=== PATIENT | male | born 1970 | race Caucasian/White ===

== ENCOUNTER → 2018-08-26 16:47 | Outpatient (CLI) | payer OTHER, SELFPAY ==
--- NOTE | 2018-08-26 16:53 | XR_ITS ---
XR foot LT min 3V Ordering Physician: Juancho Irby Patient Age: 47 years: Male HISTORY: ITS.REASON: LEFT FOOT INJURY WITH PAIN Jumped off a wagon one year ago. Persistent Left foot pain TECHNIQUE: 3 views of the left foot COMPARISON :12/14/2016 left foot FINDINGS . No acute fracture or findings. No periosteal reaction. No stress fracture. . Joint spaces well-maintained. No erosions. Bones well mineralized. Only note that we again see the prominent medial extension of the tarsal navicular/anatomical variant However this be associated with symptoms at the insertion of the posterior tibial tendon if focal tenderness here. Also note patient has a generous plantar arch. Minimal plantar calcaneal spur. & Minimal encephalopathy spurring at insertion of Achilles tendon. These are unchanged from previous study IMPRESSION: Left foot intact. No acute findings. Minor observations as in text.
== END ==
PROVIDERS: PCP Internal Medicine; Visit Provider Internal Medicine
DX: S99.922A Unspecified injury of left foot, initial encounter (principal)
CPT/HCPCS: 73630

== ENCOUNTER → 2019-08-11 15:58 | Outpatient (CLI) | payer OTHER, SELFPAY ==
--- NOTE | 2019-08-11 16:04 | XR_ITS ---
PROCEDURE: XR FOOT WT BEARING RT 3V CLINICAL INDICATION: foot and ankle pain COMPARISON: FTL3 FOOT-LT-3 VIEWS from 12/14/2016 [id number] XR foot LT min 3V from 08/26/2018 FINDINGS: No fracture or dislocation. No lytic or blastic change. There is normal mineralization. The joint spaces are well-preserved. No significant degenerative/arthritic changes. No erosive changes evident. Other findings:Small enthesophyte at the Achilles insertion. There is minimal osteoarthritic change of the talonavicular joint and the anterior tibiotalar IMPRESSION: Minimal degenerative change, no acute finding Dictated by: Aden Moralez MD 08/11/2019 16:26 Electronically signed by Aden Moralez MD in [place] 08/11/2019 16:26
--- NOTE | 2019-08-11 16:04 | XR_ITS ---
PROCEDURE: XR ANKLE WT BEARING LT MIN 3V CLINICAL INDICATION: foot and ankle pain Foot and ankle pain COMPARISON: XR FOOT WT BEARING LT 3V from 08/11/2019 FINDINGS: No fracture, dislocation, lytic change, or blastic change evident. No significant degenerative change. Small calcaneal spurs noted in there is a small enthesophyte at the Achilles insertion IMPRESSION: No acute findings. Dictated by: Aden Moralez MD 08/11/2019 16:25 Electronically signed by Aden Moralez MD in [place] 08/11/2019 16:25
--- NOTE | 2019-08-11 16:04 | XR_ITS ---
PROCEDURE: XR FOOT WT BEARING LT 3V CLINICAL INDICATION: Foot and ankle pain COMPARISON: FTL3 FOOT-LT-3 VIEWS from 12/14/2016 [id number] XR foot LT min 3V from 08/26/2018 FINDINGS: No fracture or dislocation. No lytic or blastic change. There is normal mineralization. The joint spaces are well-preserved. No significant degenerative/arthritic changes. No erosive changes evident. Other findings:None. IMPRESSION: No acute findings. Dictated by: Aden Moralez MD 08/11/2019 16:22 Electronically signed by Aden Moralez MD in [place] 08/11/2019 16:22
--- NOTE | 2019-08-11 16:04 | XR_ITS ---
PROCEDURE: XR ANKLE WT BEARING RT MIN 3V CLINICAL INDICATION: foot and ankle pain COMPARISON: No exams were available for comparison FINDINGS: No fracture or dislocation. No lytic or blastic change. There is some cortical regularity of the posterior distal tibia which could be posttraumatic. IMPRESSION: Mild cortical irregularity of the posterior distal tibia which could be related to chronic posttraumatic changes, no acute finding Dictated by: Aden Moralez MD 08/11/2019 16:23 Electronically signed by Aden Moralez MD in [place] 08/11/2019 16:23
== END ==
PROVIDERS: PCP Internal Medicine; Visit Provider Podiatrist
DX: M25.572 Pain in left ankle and joints of left foot (principal); M25.571 Pain in right ankle and joints of right foot
CPT/HCPCS: 73610; 73630

== ENCOUNTER → 2020-11-29 16:25 | Outpatient (CLI) | payer OTHER, SELFPAY ==
--- NOTE | 2020-11-29 16:29 | XR_ITS ---
PROCEDURE: XR CHEST 2V CLINICAL HISTORY: LT SHOULDER PAIN W/ COUGH, ASTHMA COMPARISON: No exams were available for comparison FINDINGS: Normal heart size. The renate are prominent on both sides and may be related to either prominent pulmonary arteries or adenopathy. Nonemergent chest CT with contrast may provide further evaluation. The lungs are clear without infiltrates, suspicious nodules, or pleural effusions. Thoracic kyphosis with degenerative changes of the thoracic spine. IMPRESSION: Bilateral hilar prominence which could be due to adenopathy or prominent pulmonary arteries. Suggest nonemergent chest CT with contrast for further evaluation Dictated by: Aden Moralez MD 11/29/2020 17:02 Aden Moralez MD in [place] 11/29/2020 17:02
== END ==
PROVIDERS: PCP Internal Medicine; Visit Provider Internal Medicine
DX: R05 Cough (principal); J45.909 Unspecified asthma, uncomplicated; M25.512 Pain in left shoulder
CPT/HCPCS: 71046

== ENCOUNTER → 2021-08-11 17:50 | Outpatient (CLI) | payer OTHER, SELFPAY ==
[2021-08-11 18:56] LABS: Basophils # 0.1 K/mm3 (0-0.2); Basophils % 0.9 % (0.1-2.0); Eosinophils # 0.5 K/mm3 (0.0-0.4); Eosinophils % 8.2 % (0.1-12.0); Hematocrit 46.8 % (42.0-52.0); Hemoglobin 14.9 g/dL (14.1-18.0); Lymphocytes # 1.5 K/mm3 (0.7-4.5); Mean Corpuscular HGB Conc 31.9 g/dL (31.8-35.4); Mean Corpuscular Hemoglobin 28.1 pg (27.0-31.2); Mean Platelet Volume 10.2 fl (7.4-10.4); Monocytes # 0.4 K/mm3 (0.1-1.0); Monocytes % 7.2 % (1.7-9.3); Neutrophils # 3.6 K/mm3 (1.8-7.8); Neutrophils % 58.8 % (37.0-80.0); Platelet Count 373 K/mm3 (142-424); Red Blood Count 5.32 M/mm3 (4.60-6.20); Red Cell Distribution Width 13.5 % (11.5-17.5); White Blood Count 6.1 K/mm3 (4.8-10.8)
[2021-08-11 19:19] LABS: Alanine Aminotransferase 25 U/L (12-78); Albumin Level 4.1 g/dl (3.5-5.0); Albumin/Globulin Ratio 1.5 (1.1-1.8); Alkaline Phosphatase 66 U/L (38-126); Anion Gap 10.6 mEq/L (5-15); Aspartate Amino Transferase 19 U/L (17-59); Bilirubin,Total 0.3 mg/dl (0.2-1.3); Blood Urea Nitrogen 14 mg/dl (9-20); Calcium 8.9 mg/dl (8.4-10.2); Carbon Dioxide 29 mmol/L (22.0-30.0); Chloride 101 mmol/L (98-107); Chol/HDL Ratio 3.4 (1-3.5); Cholesterol 162 mg/dl (140-200); Estimated Glomerular Filt Rate 64 ml/min (>60); GFR (African American) 77 ML/MIN (>60); Globulin 2.8 g/dL (1.3-3.2); Glucose 75 mg/dl (74-100); HDL Cholesterol 47 mg/dl (40-60); Potassium 4.6 mmoL/L (3.5-5.1); Sodium 136 mmol/L (136-145); Total Protein,Serum 6.9 g/dl (6.3-8.2); Triglycerides 68 mg/dl (30-150); VLDL Cholesterol 14 mg/dL (0-40)
[2021-08-11 19:30] LABS: Direct LDL Cholesterol 109.57 mg/dL (100-129)
[2021-08-11 19:51] LABS: Thyroid Stimulating Hormone 1.56 uIU/mL (0.465-4.68)
== END ==
PROVIDERS: Visit Provider Internal Medicine
DX: I10 Essential (primary) hypertension (principal); E78.5 Hyperlipidemia, unspecified; K21.9 Gastro-esophageal reflux disease without esophagitis; J45.909 Unspecified asthma, uncomplicated; N40.1 Benign prostatic hyperplasia with lower urinary tract symptoms; E66.9 Obesity, unspecified; Z90.5 Acquired absence of kidney; Z68.31 Body mass index [BMI] 31.0-31.9, adult
CPT/HCPCS: 80053; 80061; 84443; 85025; G0103

== ENCOUNTER 2022-02-10 09:47 | Emergency (ER) | payer OTHER, SELFPAY ==
[2022-02-10 10:17] VITALS: BP 140/83; PULSE 74; RESP 17; TEMP 36.9; O2SAT 96; BMI 31.6
--- NOTE | 2022-02-10 10:18 | HMH.EDUTC ---
[facility] Disposition Clinical Impression: Allergic conjunctivitis Qualifiers: Laterality: bilateral Qualified Code(s): H10.13 - Acute atopic conjunctivitis, bilateral Hordeolum of right lower eyelid Qualifiers: Hordeolum type: internum Qualified Code(s): H00.022 - Hordeolum internum right lower eyelid Disposition: Home, Self-Care Condition on Discharge: Good Instructions: DI for Hordeolum Additional Instructions: Warm compresses Return if not improving Prescriptions: Amoxicillin/Potassium Clav [Augmentin 500mg tab] 500 mg PO TID #30 tab Transmission Status: Pending to [facility] methylPREDNISolone [Medrol 4mg tab] 4 mg PO DIRECTED #21 tab Transmission Status: Pending to [facility] Olopatadine HCl [Pataday] 1 drp OP BID 30 Days #1 ml Transmission Status: Pending to [facility] Levocetirizine Dihydrochloride [Xyzal] 5 mg PO DAILY 30 Days #30 tab Transmission Status: Pending to [facility] Referrals: Juancho Irby MD [Primary Care Provider] - Time of Disposition: 10:29 Medical Decision Making - [place]isteo Inquiry Pt receiving controlled substance: No [facility] HPI - General Stated complaint: right eye swelling/redness Time Seen by Provider: 02/10/22 10:21 - History of Present Illness Provider Complaint: Right eye redness and swelling. Has gotten progressively worse X 1 week. Has a history of allergies. This am eye is swollen, sore, thick drainage. OTC eye drops have not helped. Onset (ago): week(s) (1) Location: eyes Relieving factors: none Exacerbating factors: none Associated symptoms: denies other symptoms Treatments prior to arrival: none - Related Data Home Medications Medication Instructions Recorded Confirmed amlodipine 10 mg tablet 10 mg PO ONCE 01/07/18 08/19/19 fluticasone propionate 50 2 spray INTRANASAL ONCE 01/07/18 08/19/19 mcg/actuation nasal spray,suspension losartan 100 1 tab PO #0 tab 08/19/19 08/19/19 mg-hydrochlorothiazide 12.5 mg tablet omeprazole 40 mg capsule,delayed 40 mg PO #0 cap 08/19/19 08/19/19 release Previous Rx's Medication Instructions Recorded vyurqkrr-khkwemqvc-qjpenyecq 3.5 4 drp OTIC Q8H 10 Days #10 ml 04/13/19 mg-10,000 unit/mL-1 % ear drops,susp ofloxacin 0.3 % ear drops 3 drp OTIC DAILY 5 Days #5 ml 05/04/19 diclofenac sodium 1 % topical gel 4 g TOPICAL QID PRN 30 Days #100 g 08/19/19 meloxicam 7.5 mg tablet 7.5 mg PO DAILY 30 Days #30 tab 08/19/19 methylprednisolone 4 mg tablets in See Rx Instructions PO PER PKG DIR 08/19/19 a dose pack #21 tab Amoxicillin/Potassium Clav 500 mg PO TID #30 tab 02/10/22 [Augmentin 500mg tab] Levocetirizine Dihydrochloride 5 mg PO DAILY 30 Days #30 tab 02/10/22 [Xyzal] Olopatadine HCl [Pataday] 1 drp OP BID 30 Days #1 ml 02/10/22 methylPREDNISolone [Medrol 4mg 4 mg PO DIRECTED #21 tab 02/10/22 tab] Allergies Allergy/AdvReac Type Severity Reaction Status Date / Time No Known Allergies Allergy Verified 08/19/19 15:39 [facility] History - Hepatitis A Screen Attestation statement:: This patient has been screened for Hepatitis A risk factors. I have reviewed the patient's past medical history: Yes Medical History: Reports:: Asthma, Hypertension Other Medical History: Reports: Sinus Problems Other Surgeries: Yes: EGD Amputation: No Fractures: No Comment: REMOVAL CYST EAR,MEATOTOMY WITH CYSTOSCOPY - Social History Smoking Status: Former smoker Alcohol Intake: current Alcohol Intake Frequency:: a few times a month Substance Use Type: denies use Occupational Status: employed Housing: house Household Members: family Family Hx:: Cancer, Diabetes, Asthma, Heart Attack ROS Obtained: Yes All systems reviewed & no additional complaints - Eyes Eyes: Reports eye discharge, Reports itchy eyes, Reports eye pain Physical Exam - General General appearance: alert, in no apparent distress - Head Head exam: normocephalic - Eye Eye
[2022-02-10 10:30] VITALS: BP 140/83; PULSE 74; RESP 17; TEMP 36.9
== END 2022-02-10 10:33 | disposition home or self-care (01) ==
PROVIDERS: Emergency Provider Physician Assistant; PCP Internal Medicine
DX: H10.13 Acute atopic conjunctivitis, bilateral (principal); H00.022 Hordeolum internum right lower eyelid
CPT/HCPCS: 99212; G0463

== ENCOUNTER → 2022-07-20 16:23 | Outpatient (CLI) | payer OTHER, SELFPAY ==
--- NOTE | 2022-07-20 16:35 | ECG_ITS ---
APPROVED REPORT Exam: Resting ECG HR:82 bpm ECG Measurements Heart Rate 82 AXES NJ 186 P 60 QRSd 92 QRS 32 QT 352 T 12 QTc 390 Conclusion SINUS RHYTHM NORMAL ECG Electronically signed by : Juancho Irby MD 08/14/2022 13:57:35
== END ==
PROVIDERS: PCP Internal Medicine; Visit Provider Internal Medicine
DX: R07.9 Chest pain, unspecified (principal)
CPT/HCPCS: 93005

== ENCOUNTER → 2022-08-07 15:01 | Outpatient (CLI) | payer OTHER, SELFPAY ==
--- NOTE | 2022-08-07 | CA_ITS ---
APPROVED REPORT Exam: Exercise Treadmill Technologist: Sariah Mckenzie, Ht: 6 ft 1 in Wt: 240 lbs BSA: 2.33 m2 HR: 96 bpm BP: 133/84 mmHg Medical History Medications: Omeprazole,,,,, Stress Test Details Test: Tony HR Resting HR: 93 bpm Max Heart Rate (APMHR): 167.263394 bpm Max HR Achieved: 146 bpm Target HR (85% APMHR): 141.088384 bpm % of APMHR: 87.43 Recovery HR: 109 bpm BP Resting BP: 132/74 mmHg Max BP: 153/76 mmHg Recovery BP: 153.0/76.0 mmHg ECG Clinical Reason for Termination: Leg Pain Dyspnea Exercise duration: 09:00 min Highest Stage Achieved: Exercise capacity: 10.1 METs Stress ECG Conclusion 9 Min Max HR: 146 % of PM: 102 METs: 10.1 Test stopped due to: Hip pain, SOA Symptoms: No CP Arrhythmias/Ectopy: None ST-T Changes: <1.5mm ST Segment changes Conclusion: Negative stress. Test Summary REST . . . . . . . Sitting REST . . . . . . . Standing REST 02:24 0.0 1.2 93 . 132/ 74 . . Stage 1 01:00 10.0 1.7 106 . . . . Stage 1 02:00 10.0 1.7 106 . . . . Stage 1 03:00 10.0 1.7 106 . 142/ 90 . . Stage 2 01:00 12.0 2.5 111 . . . . Stage 2 02:00 12.0 2.5 116 . . . . Stage 2 03:00 12.0 2.5 117 . 150/ 90 . . Stage 3 01:00 14.0 3.4 130 . . . . Stage 3 02:00 14.0 3.4 140 . . . . Stage 3 03:00 14.0 3.4 146 . . . Stop exercise at 09:00 RECOVERY 01:00 0.0 0.0 133 . . . . RECOVERY 02:00 0.0 0.0 118 . . . . RECOVERY 03:00 0.0 0.0 110 . . . . RECOVERY 04:00 0.0 0.0 108 . 153/ 76 . . RECOVERY 05:00 0.0 0.0 0 . 153/ 76 . . RECOVERY 05:22 0.0 0.0 0 . 153/ 76 . . Electronically signed by : Loc Levi MD 08/07/2022 20:18:16
== END ==
PROVIDERS: PCP Internal Medicine; Visit Provider Internal Medicine
DX: R07.9 Chest pain, unspecified (principal)
CPT/HCPCS: 93017

== ENCOUNTER → 2023-01-09 14:59 | Outpatient (POV) | payer OTHER, SELFPAY | PROVIDERS: Visit Provider Specialist/Technologist | DX: Z00.00 Encounter for general adult medical examination without abnormal findings (principal) ==

== ENCOUNTER 2024-08-24 11:40 | Outpatient (CLI) | payer BC, OTHER, SELFPAY ==
[2024-08-24 14:29] LABS: Basophils # 0.1 K/mm3 (0-0.2); Basophils % 1.2 % (0.1-2.0); Eosinophils # 0.8 K/mm3 (0.0-0.4); Lymphocytes # 1.6 K/mm3 (0.7-4.5); Lymphocytes % 27.4 % (10-50); Mean Corpuscular HGB Conc 33.3 g/dL (31.8-35.4); Mean Corpuscular Hemoglobin 29.3 pg (27.0-31.2); Mean Corpuscular Volume 87.9 fl (80-94); Mean Platelet Volume 8.9 fl (7.4-10.4); Monocytes # 0.5 K/mm3 (0.1-1.0); Monocytes % 8.2 % (1.7-9.3); Neutrophils % 50.2 % (37.0-80.0); Platelet Count 286 K/mm3 (142-424); Red Blood Count 5.47 M/mm3 (4.60-6.20); Red Cell Distribution Width 13.6 % (11.5-17.5); White Blood Count 5.9 K/mm3 (4.8-10.8)
[2024-08-24 15:34] LABS: Chloride 103 mmol/L (98-107); Potassium 4.8 mmoL/L (3.5-5.1); Sodium 132 mmol/L (136-145)
[2024-08-24 15:37] LABS: Alanine Aminotransferase 25 U/L (12-78); Albumin/Globulin Ratio 1.3 (1.1-1.8); Alkaline Phosphatase 64 U/L (38-126); Anion Gap 7.8 mEq/L (5-15); Aspartate Amino Transferase 20 U/L (17-59); Bilirubin,Total 0.8 mg/dl (0.2-1.3); Blood Urea Nitrogen 18 mg/dl (9-20); Calcium 8.8 mg/dl (8.4-10.2); Carbon Dioxide 26 mmol/L (22.0-30.0); Cholesterol 176 mg/dl (140-200); Estimated Glomerular Filt Rate 63 ml/min (>60); GFR (African American) 76 ML/MIN (>60); Glucose 78 mg/dl (74-100); Triglycerides 59 mg/dl (30-150); VLDL Cholesterol 12 mg/dL (0-40)
[2024-08-24 15:38] LABS: Chol/HDL Ratio 3.9 (1-3.5); HDL Cholesterol 45 mg/dl (40-60)
[2024-08-24 15:49] LABS: Direct LDL Cholesterol 114.87 mg/dL (100-129)
[2024-08-24 16:59] LABS: Prostate Specific Ag Screen 1.4 ng/ml (0.0-4.0)
[2024-08-25 08:52] LABS: Testosterone,Total 478 ng/dL (264-916)
== END 2024-08-24 23:59 | disposition home or self-care (01) ==
LOC: LAB.DROPOF 08-25 11:41
PROVIDERS: PCP Internal Medicine; Visit Provider Internal Medicine
DX: E78.5 Hyperlipidemia, unspecified (principal); R53.83 Other fatigue; I10 Essential (primary) hypertension; Z12.5 Encounter for screening for malignant neoplasm of prostate
CPT/HCPCS: 80053; 80061; 84403; 85025; G0103